=== PATIENT | female | born 2005 | race Caucasian/White ===

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

== ENCOUNTER → 2024-03-19 10:33 | Outpatient (BNVA) | payer BC, MEDICAID, SELFPAY | PROVIDERS: PCP Family Medicine; Referring Provider Family Medicine; Visit Provider Nurse Practitioner | DX: S62.356A Nondisplaced fracture of shaft of fifth metacarpal bone, right hand, initial encounter for closed fracture; W22.8XXA Striking against or struck by other objects, initial encounter | CPT/HCPCS: 73130 ==

== ENCOUNTER 2024-03-19 11:47 | Outpatient (CLI) | payer BC, MEDICAID, SELFPAY | END 2024-03-19 11:48 | disposition home or self-care (01) | LOC: SPT 11:48 | PROVIDERS: PCP Family Medicine; Visit Provider Nurse Practitioner | DX: Z46.89 Encounter for fitting and adjustment of other specified devices (principal); S62.606D Fracture of unspecified phalanx of right little finger, subsequent encounter for fracture with routine healing; X58.XXXD Exposure to other specified factors, subsequent encounter | CPT/HCPCS: L3984 ==

== ENCOUNTER → 2024-04-09 09:08 | Outpatient (BNVA) | payer BC, MEDICAID, SELFPAY | PROVIDERS: PCP Family Medicine; Visit Provider Nurse Practitioner | DX: S62.356D Nondisplaced fracture of shaft of fifth metacarpal bone, right hand, subsequent encounter for fracture with routine healing; X58.XXXD Exposure to other specified factors, subsequent encounter | CPT/HCPCS: 73130 ==

== ENCOUNTER → 2024-05-17 14:39 | Outpatient (BNVA) | payer BC, MEDICAID, SELFPAY | PROVIDERS: PCP Family Medicine; Visit Provider Nurse Practitioner | DX: S62.356D Nondisplaced fracture of shaft of fifth metacarpal bone, right hand, subsequent encounter for fracture with routine healing (principal); X58.XXXD Exposure to other specified factors, subsequent encounter | CPT/HCPCS: 73130 ==

== ENCOUNTER → 2024-06-07 15:12 | Outpatient (BNVA) | payer BC, MEDICAID, SELFPAY | PROVIDERS: PCP Family Medicine; Visit Provider Nurse Practitioner | DX: S62.356D Nondisplaced fracture of shaft of fifth metacarpal bone, right hand, subsequent encounter for fracture with routine healing (principal); X58.XXXD Exposure to other specified factors, subsequent encounter | CPT/HCPCS: 73130 ==

== ENCOUNTER 2024-08-18 16:00 | Emergency (ER) | payer BC, MEDICAID, SELFPAY ==
[2024-08-18 16:02] VITALS: BP 116/87; PULSE 98; RESP 18; TEMP 36.6; O2SAT 100; BMI 33.5
--- NOTE | 2024-08-18 16:02 | ED_ITS ---
HPI - General Adult 2 General: Chief complaint: Dizziness Stated complaint: right eye blurred - blurred Time Seen by Provider: 08/18/24 16:02 History of Present Illness: 18-year-old female presents emergency ro om with complaint of right eye blurriness. She is currently approximately 13 weeks . She has been having a few more headaches recently and they have been accompanied by odd symptoms such as sometimes numbness in the hands or feet transient vision changes feels like wavy lines or dark spots in her vision resolve spontaneously. No recent head trauma. Seems to get the symptoms as a harbinger of her headaches. She has not taken anything for them. Associated symptoms: Reports headache(s); Deny chest pain, dyspnea or rash Related Data Previous Rx's ?Medication ?Instructions ?Recorded epinephrine 0.3 mg/0.3 mL 0.3 mg (0.3 mL) IM Q10M PRN 04/24/20 injection, auto-injector (EpiPen) anaphylaxis #2 ea Ulna Gutter Fast FOrm, Right side #1 ea 03/19/24 nystatin-triamcinolone 100,000 1 applic topical TID MN N rash #30 03/25/24 unit/gram-0.1 % topical ointment grams right TKO wrist #1 ea 03/25/24 Allergies Allergy/AdvReac Type Severity Reaction Status Date / Time benzocaine (From Anbesol) Allergy ALGY-Hives Verified 06/07/24 15:19 phenol (From Anbesol) Allergy ALGY-Hives Verified 06/07/24 15:19 povidone-iodine (From Allergy ALGY-Hives Verified 06/07/24 15:19 Anbesol) Review of Systems 2 Const: Denies: fever(s) or chills Card: Denies: chest pain Resp: Denies: dyspnea GI: Denies: abdominal pain : Denies: dysuria, urinary frequency or urinary urgency Musc: Denies: neck pain or back pain Skin/Breast: Denies: rash Neuro: Reports: headache(s) PFSH ED 2 PFSH: Social History Smoking and tobacco/nicotine status: never used tobacco/nicotine Physical Exam 2 Const: COMMON NORMALS: no acute distress GENERAL APPEARANCE: cooperative ORIENTATION/CONSCIOUSNESS: Yes awake, Yes oriented to person, Yes oriented to place and Yes oriented to time HENMT: COMMON NORMALS: normocephalic, atraumatic and hearing grossly normal bilaterally HEAD & SCALP: normocephalic and atraumatic OTHER: Visual acuity with left and right eyes checked with Snellen chart at the bedside patient passes with no errors. Normal mena of vision. Eye: COMMON NORMALS: Equal, round and reactive pupils present, EOMs intact bilaterally, conjunctivae normal and no scleral icterus CONJUNCTIVA: Yes conjunctivae normal PUPIL: Yes Equal, round and reactive pupils present Resp: COMMON NORMALS: normal respiratory effort, No retractions, No use of accessory muscles and clear to auscultation bilaterally AUSCULTATION: clear to auscultation bilaterally Cardio: COMMON NORMALS: regular rate, regular rhythm and No murmurs present (Cardio) RATE: regular rate RHYTHM: regular rhythm GI: COMMON NORMALS: Soft to palpation and No hepatosplenomegaly present A USCULTATION: Yes normoactive bowel sounds PALPATION: Yes Soft to palpation, No Tenderness to palpation present (GI), No Guarding due to palpation present (GI) and Yes No hepatosplenomegaly present Extremity: COMMON NORMALS: normal to inspection, capillary refill normal, no clubbing, cyanosis or edema, no calf tenderness and no pedal edema Neuro: SENSORIUM/ORIENTATION: Yes oriented to person, Yes oriented to place and Yes oriented to time OTHER: No focal neurologic deficits. Mena vision are fully intact visual acuity normal when tested at the bedside is Snellen chart Skin: COMMON NORMALS: no rashes or lesions noted GENERAL SKIN EXAM: no rashes or lesions noted Course 2 Vital Signs: Vital signs: Vital Signs Temperature 97.9 F 08/18/24 16:02 Pulse Rate 79 08/18/24 18:07 Respiratory Rate 18 08/18/24 17:06 Blood Pressure 127/81 08/18/24 18:07 Pulse Oximetry 98 08/18/24 18:07 Oxygen Delivery Me thod Room Air 08/18/24 17:06 [facility] - General Adult Medical Decision Making No acute findings on exam suspect she had a migraine variant. She had a headache last night she feels like she has oncoming headache now. On visual acuity exam and peripheral vision she has full normal mena of vision and no deficits Patient did develop more of a headache as the visit went on we gave her medications for it is improved we will discharge the patient home. CT of the head is negative neurologic exam remains unremarkable fall discussed with her some of this may be migraine variant some of this I think may be a component of anxiety which she acknowledges. Discharge home follow-up with primary care [employer]. Lab Data 08/18/24 16:38 08/18/24 16:[address] 08/18/24 16:12 IMPRESSION: No acute intracranial abnormality. If symptoms persist, consider further evaluation with MRI, if there are no contraindications to obtaining a MRI scan. ASSESSMENT: ASPECTS ([place] Stroke Program Early CT Score) is 10. ADDENDUM: 08/18/24 2727 ADDENDUM: THIS REPORT CONTAINS FINDINGS THAT MAY BE CRITICAL TO PATIENT CARE. The findings were verbally communicated via telephone conference with Dr. Leonardo at 4:35 PM CDT on 08/18/2024. The findings were acknowledged and understood. Laboratory Results WBC 11.22 10^3/uL (4.5-13.0) 08/18/24 16:38 RBC 4.70 10^6/uL (3.85-5.65) 08/18/24 16:38 Hgb 13.20 g/dL (12.4-14.8) 08/18/24 16:38 Hct 41.6 % (36-47) 08/18/24 16:38 MCV 88.5 fl (85-98) 08/18/24 16:38 MCH 28.1 pg (27-33) 08/18/24 16:38 MCHC 31.7 g/dL (30-55) 08/18/24 16:38 RDW 13.6 % (12.1-15.1) 08/18/24 16:38 Plt Count 284 10^3/cmm (157-399) 08/18/24 16:38 MPV 9.5 fL (7.4-10.4) 08/18/24 16:38 Neut % (Auto) 74.8 % 08/18/24 16:38 Lymph % (Auto) 16.8 % 08/18/24 16:38 Weld % (Auto) 7.3 % 08/18/24 16:38 Eos % (Auto) 0.4 % 08/18/24 16:38 Baso % (Auto) 0.3 % 08/18/24 16:38 Neut # (Auto) 8.40 10^3/uL (1.8-8.0) H 08/18/24 16:38 Lymph # (Auto) 1.9 10^3/uL (1.5-6.5) 08/18/24 16:38 Weld # (Auto) 0.8 10^3/uL (0.2-0.9) 08/18/24 16:38 Eos # (Auto) 0.1 10^3/uL (0.0-0.8) 08/18/24 16:38 Baso # (Auto) 0.0 10^3/uL (0.0-0.1) 08/18/24 16:38 Nucleated RBC % (auto) 0 % 08/18/24 16:38 Nucleated RBCs # 0.0 /100WBC 08/18/24 16:38 Sodium 136 mmol/L (136-145) 08/18/24 16:38 Potassium 3.8 mmol/L (3.5-5.1) 08/18/24 16:38 Chloride 103 mmol/L (98-107) 08/18/24 16:38 Carbon Dioxide 19 mmol/L (22-29) L 08/18/24 16:38 Anion Gap 17.8 (5-19) 08/18/24 16:38 BUN 7 mg/dL (6-20) 08/18/24 16:38 Creatinine 0.5 mg/dL (0.5-0.9) 08/18/24 16:38 GFR Calculation 158.9 mL/min (90-130) H 08/18/24 16:38 Glucose 97 mg/dL (65-115) 08/18/24 16:38 Calculated Osmolality 280 mOsm/kg (285-295) L 08/18/24 16:38 Calcium 9.8 mg/dL (8.5-10.5) 08/18/24 16:38 Total Bilirubin 0.2 mg/dL (0.15-1.2) 08/18/24 16:38 AST 20 U/L (0-32) 08/18/24 16:38 ALT 36 U/L (0-33) H 08/18/24 16:38 Alkaline Phosphatase 90 U/L (35-105) 08/18/24 16:38 Total Protein 7.5 g/dL (6.6-8.7) 08/18/24 16:38 Albumin 4.0 g/dL (3.5-5.2) 08/18/24 16:38 Globulin 3.5 g/dL (1.3-4.6) 08/18/24 16:38 All radiology interpretation(s) finalized by discharge Discharge Plan Discharge Patient Disposition: Home Clinical Impression: state, incidental Headache Qualifiers: Headache type: other headache syndrome Qualified Code(s): G44.89 - Other headache syndrome Condition: Stable Prescriptions: No Action (DME) Ulna Gauravter Fast FOrm, Right side See Rx Instructions .Route .MEDSUPPLY Qty: 1 0RF Rx Instructions: As directed (DME) right TKO wrist See Rx Instructions .Route .MEDSUPPLY Qty: 1 0RF Rx Instructions: As directed. Order 99 days nystatin-triamcinolone 100,000-0.1 unit/gram-% ointment 1 applic topical TID PRN (Reason: rash) Qty: 30 1RF EpiPen 0.3 mg/0.3 mL auto-injector 0.3 mg IM Q10M PRN (Reason: anaphylaxis) Qty: 2 0RF Rx Instructions: for 2 doses Discharge Orders: Discharge ED (Routine); Ordered 08/18/24 Ordered By: Vikram Nobles Referrals: Stalin Parker MD [Primary Care Provider, [facility]] Discharge Diet: Usual diet Discharge Activity: Resume usual activity Patient Instructions: Opioid Safety, Pain Management Activity Restrictions/Additional Instructions: Thank you for choosing [facility] for your healthcare needs today. It is very important that you follow up as instructed or that you return to the Emergency Department should you have concerns or if your condition changes or worsens in any way. You were seen in the emergency room with complaints of headache as well as some weakness and vision changes. CT of your head is negative exam did not show any signs of stroke suspect that the symptoms are related to your headache. As we discussed they also can be experiencing conjunction with anxiety. 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 Print Language: Djiboutian Coding Level of Care Code ED [employer] for Radha Hernandez
--- NOTE | 2024-08-18 16:12 | CTR_ITS ---
PROCEDURE INFORMATION: Exam: CT Head Without Contrast Exam date and time: 08/18/2024 4:20 PM Age: 18 years old Clinical indication: Stroke-like symptoms; Visual disturbance; Additional info: Transient vision loss, 13 weeks shield abdomen TECHNIQUE: Imaging protocol: Computed tomography of the head without contrast. Radiation optimization: All CT scans at this facility use at least one of these dose optimization techniques: automated exposure control; mA and/or kV adjustment per patient size (includes targeted exams where dose is matched to clinical indication); or iterative reconstruction. Other technique: STROKE PROTOCOL was implemented. COMPARISON: No relevant prior studies available. RADIATION DOSE METRICS: Total DLP (mGy-cm): 995.8 FINDINGS: Brain: No acute intracranial hemorrhage. No confluent lobar infarct. No mass effect. Cerebral ventricles: The ventricles and sulci are normal in size and shape for the patient's stated age. Paranasal sinuses: No fluid levels. Mastoid air cells: Visualized mastoid air cells are well aerated. Bones: No acute calvarial fracture. Soft tissues: Visualized soft tissues are unremarkable. CT/CT head wo con* [id number] IMPRESSION: No acute intracranial abnormality. If symptoms persist, consider further evaluation with MRI, if there are no contraindications to obtaining a MRI scan. ASSESSMENT: ASPECTS ([place] Stroke Program Early CT Score) is 10.
[2024-08-18 16:16] VITALS: BP 116/87; PULSE 89; RESP 16; O2SAT 98
[2024-08-18 17:06] VITALS: BP 127/84; PULSE 94; RESP 18; O2SAT 98
[2024-08-18 17:09] LABS: Basophils % 0.3 %; Eosinophils # 0.1 10^3/uL (0.0-0.8); Eosinophils % 0.4 %; Hematocrit 41.6 % (36-47); Lymphocytes # 1.9 10^3/uL (1.5-6.5); Lymphocytes % 16.8 %; Mean Corpuscular HGB Conc 31.7 g/dL (30-55); Mean Corpuscular Hemoglobin 28.1 pg (27-33); Mean Corpuscular Volume 88.5 fl (85-98); Mean Platelet Volume 9.5 fL (7.4-10.4); Monocytes # 0.8 10^3/uL (0.2-0.9); Monocytes % 7.3 %; Neutrophils % 74.8 %; Nucleated Red Blood Cells % 0 %; Platelet Count 284 10^3/cmm (157-399); Red Cell Distribution Width 13.6 % (12.1-15.1); White Blood Count 11.22 10^3/uL (4.5-13.0)
[2024-08-18 17:27] LABS: Alanine Aminotransferase 36 U/L (0-33); Alkaline Phosphatase 90 U/L (35-105); Aspartate Amino Transferase 20 U/L (0-32); Blood Urea Nitrogen 7 mg/dL (6-20); Calcium 9.8 mg/dL (8.5-10.5); Carbon Dioxide 19 mmol/L (22-29); Chloride 103 mmol/L (98-107); Globulin 3.5 g/dL (1.3-4.6); Glomerular Filtration Rate 158.9 mL/min (90-130); Glucose 97 mg/dL (65-115); Osmolality Calculated 280 mOsm/kg (285-295); Sodium 136 mmol/L (136-145); Total Bilirubin 0.2 mg/dL (0.15-1.2); Total Protein 7.5 g/dL (6.6-8.7)
[2024-08-18 17:31] LABS: Anion Gap 17.8 (5-19); Potassium 3.8 mmol/L (3.5-5.1)
[2024-08-18 18:07] VITALS: BP 127/81; PULSE 79; O2SAT 98
== END 2024-08-18 18:07 | disposition home or self-care (01) ==
PROVIDERS: Emergency Provider Family Medicine; PCP Family Medicine
DX: G44.89 Other headache syndrome (principal); Z33.1 Pregnant state, incidental
CPT/HCPCS: 36415; 70450; 80053; 85025; 99284

== ENCOUNTER 2025-02-13 16:07 | Outpatient (CLI) | payer BC, MEDICAID, SELFPAY ==
[2025-02-13 16:10] VITALS: BMI 35.9
[2025-02-13 16:18] VITALS: BP 121/73; PULSE 96
[2025-02-13 16:33] VITALS: BP 121/76; PULSE 93
[2025-02-13 16:48] VITALS: BP 127/69; PULSE 88
== END 2025-02-13 16:55 | disposition home or self-care (01) ==
LOC: OPOB 16:08 → OBGYN 16:08
PROVIDERS: PCP Family Medicine; Visit Provider Family Medicine
DX: O36.8190 Decreased fetal movements, unspecified trimester, not applicable or unspecified (principal); Z3A.00 Weeks of gestation of pregnancy not specified
CPT/HCPCS: 59025; 99211

== ENCOUNTER 2025-03-03 20:11 | Outpatient (CLI) | payer BC, MEDICAID, SELFPAY ==
[2025-03-03 20:57] VITALS: BP 127/75; PULSE 89
[2025-03-03 21:00] VITALS: BMI 38.8
[2025-03-03 21:02] VITALS: RESP 16
[2025-03-03 21:56] VITALS: BP 119/74; PULSE 93
[2025-03-03 22:15] VITALS: BP 125/77; PULSE 85
[2025-03-03 22:20] VITALS: BP 125/77; PULSE 85; RESP 16; TEMP 36.3; O2SAT 98
== END 2025-03-03 22:20 | disposition home or self-care (01) ==
LOC: OPOB 20:12 → OBGYN 20:18
PROVIDERS: PCP Family Medicine; Visit Provider Family Medicine
DX: O26.899 Other specified pregnancy related conditions, unspecified trimester (principal); Z3A.00 Weeks of gestation of pregnancy not specified; R10.9 Unspecified abdominal pain
CPT/HCPCS: 59025; 99211

== ENCOUNTER 2025-03-05 07:14 | Inpatient (IN) | payer BC, MEDICAID, SELFPAY ==
[2025-03-04 23:17] VITALS: BP 133/83; PULSE 88
[2025-03-04 23:25] LABS: Nitrazine Paper, PH Inconclusive
[2025-03-04 23:34] VITALS: BP 132/77; PULSE 95
[2025-03-05] VITALS (107 sets, daily range): BP systolic 92–159; BP diastolic 53–95; PULSE 74–133; RESP 17–18; TEMP 35.8–37; O2SAT 87–100
[2025-03-05 01:58] LABS: Hematocrit 31.7 % (36-47); Hemoglobin 9.90 g/dL (12.4-14.8); Mean Corpuscular HGB Conc 31.2 g/dL (30-55); Mean Corpuscular Hemoglobin 25.9 pg (27-33); Mean Corpuscular Volume 83.0 fl (85-98); Nucleated Red Blood Cells % 0.2 %; Platelet Count 273 10^3/cmm (157-399); Red Blood Count 3.82 10^6/uL (3.85-5.65); White Blood Count 14.41 10^3/uL (4.5-13.0)
[2025-03-05] MEDS: penicillin g potassium 5,000,000 UNIT in sodium chloride 0.9% (plus) 100 ML 100 UNIT IV (03:02)
[2025-03-05] MEDS: PENICILLIN G POTASSIUM 2,500,000 UNIT/50 ML BAG 50 UNIT IV ×4 (06:44→19:20)
[2025-03-05] MEDS: ROPivacaine premix 200 MG/100 ML PREMIX 10 MG EPIDURAL ×3 (10:04→20:25)
--- NOTE | 2025-03-05 10:06 | P.ANESASSM_ITS ---
Pre-Anesthetic Assessment Height/Weight: Height 1.7 m Weight 113.852 kg Temp Pulse Resp BP Pulse Ox O2 Del Method 96.4 F L 101 H 18 114/64 100 Room Air 03/05/25 09:03 03/05/25 10:03 03/05/25 00:15 03/05/25 10:03 03/05/25 10:03 03/05/25 00:22 Preop Diagnosis: gravid uterus epidural Familial anesthetic complications: none Was Beta Evan taken within 24 hours: N/A Was Clonidine taken within 24 hours: N/A Social No alcohol and No tobacco Exam alert, oriented x 3, clear to auscultation bilaterally and regular rate & rhythm Airway Mallampati: Class II Dentition: full History/ROS No significant history except as noted Pulmonary None reported CV/HEM None reported None reported Hepatic None reported GI None reported Metabolic None reported Musc/skel None reported Neuropsych Anxiety Anesthetic Plan ASA status: 2 Anesthesia: Regional (specify below) Risk of > 500 ml blood loss (7ml/kg in children): No Medications/Allergies Home Medications ?Medication ?Instructions ?Recorded ?Confirmed ?Last Taken ?Type epinephrine 0.3 mg/0.3 mL 0.3 mg (0.3 mL) IM Q10M PRN 04/24/20 06/07/24 Unknown Rx injection, auto-injector (EpiPen) anaphylaxis #2 ea Ulchelsie Gutter Fast FOrm, Right side #1 ea 03/19/2406/07 Unknown Rx nystatin-triamcinolone 100,000 1 applic topical TID IL N rash #30 03/25/24 06/07/24 Unknown Rx unit/gram-0.1 % topical ointment grams right TKO wrist #1 ea 03/25/24 06/07/24 Unkn own Rx Allergies Allergy/AdvReac Type Severity Reaction Status Date / Time benzocaine (From Anbesol) Allergy ALGY-Hives Verified 06/07/24 15:19 phenol (From Anbesol) Allergy ALGY-Hives Verified 06/07/24 15:19 povidone-iodine (From Allergy ALGY-Hives Verified 06/07/24 15:19 Anbesol) Current Medications Generic Name Dose Route Start Last Admin Trade Name Freq PRN Reason Stop Dose Admin Dextrose/Lactated Ringer's 1,000 mls @ 125 mls/hr 03/05/25 00:15 03/05/25 09:23 Dextrose 5%-Lactated Ringers IV Infused .Q8H TASHA Infusion Penicillin G Potassium 2,500,000 unit in 50 mls @ 50 mls/hr 03/05/25 04:15 03/05/25 08:00 IV Infused Q4H TASHA Infusion Protocol Lactated Ringer's 1,000 mls @ 999 mls/hr 03/05/25 07:55 03/05/25 10:04 Lactated Ringers IV 999 mls/hr .Q1H1M PRN Administration See label comments Ropivacaine 200 mg in 100 mls @ 10 mls/hr 03/05/25 08:00 03/05/25 10:04 Naropin Premix EPIDURAL 10 mls/hr .Q10H TASHA Administration PFSH Anesthesia Social History Smoking and tobacco/nicotine status: never used tobacco/nicotine Female Reproductive History : 1 Data Anesthesia 03/05/25 00:55 Short CBC 03/05/25 Range/Units 00:55 WBC 14.41 H (4.5-13.0) 10^3/uL Hgb 9.90 L (12.4-14.8) g/dL Hct 31.7 L (36-47) % MCV 83.0 L (85-98) fl Plt Count 273 (157-399) 10^3/cmm Neut % (Auto) 72.3 % Neut # (Auto) 10.41 H (1.8-8.0) 10^3/uL Blood Bank 03/05/25 00:55 Blood Type A Positive Rho(D) Type Rh positive Antibody Screen Negative Anesthesia Procedures Epidural Time Out Performed: Yes Consents Signed: Procedure Consent Consent: requested by attending/covering physician, from patient, risks and benefits reviewed and patient agrees to proceed Lumbar Level: L4-L5 Epidural position: sitting Epidural procedure: sterile prep of area, 1% lidocaine to numb the area, 18 g needle, negative for paresthesia passed, neg for paresthesia, test dose given, 1.5% xylocaine 1:200k epi, 0.2% Ropivacaine bolus ml (5), placed PCEA, no systemic response, sterile dressing applied, L.U.D. no apparent complications and 0.2% Ropiavacaine @ mls/hr (13) Additional Comments: ROLY at 9cm
[2025-03-05] MEDS: oxytocin 30 UNIT/500 ML BAG IV (11:00)
--- NOTE | 2025-03-05 11:01 | PM.OPHPUD ---
Labor & Delivery H&P Update Date of Procedure: March 05, 2025 Date H&P Performed: 03/01/25 Changes to previous documentation: Spontaneous rupture of membranes Admission Diagnosis: 19-year-old 1 at 39 weeks and 5 days presenting with spontaneous rupture of membranes Preop diagnosis: gravid uterus Planned procedure: Spontaneous vaginal delivery Other information: The patient is a 19-year-old female who presented to the hospital shortly after having ruptured membranes. That occurred last night around 10 PM. The patient's has been relatively unremarkable other than having anxiety issues, as well as being GBS positive. She has had consistent care. Her blood type was a positive. Her antibody screen was negative. She passed her 3-hour glucose screen. She is rubella immune. Her drug screen was negative. The remainder of her infectious disease profile was within normal limits. Related Problem List Diagnoses 1. 39 weeks gestation of : I anticipate a routine labor and vaginal delivery. Due to rupture membranes, we may augment labor as needed. 2. Spontaneous rupture of membranes: 3. Anxiety during : A&P Assessment and plan 1. 39 weeks gestation of : Status: Acute 2. Spontaneous rupture of membranes: Status: Acute 3. Anxiety during : Status: Acute PDMP PDMP Reviewed: Not Reviewed
--- NOTE | 2025-03-05 22:03 | P.PCNOB_ITS ---
Delivery Note: Date of delivery: March 05, 2025 Pre-delivery diagnoses: 19-year-old 1 at 39 weeks and 6 days presenting with spontaneous rupture membranes Post-delivery diagnoses: Status post spontaneous vaginal delivery Procedure: Spontaneous vaginal delivery Delivering Physician: Triston Rodrigez Estimated blood loss (mL): 75 Pre-Delivery Course: The patient presented to the hospital with spontaneous rupture membranes. There were noted to be grossly ruptured. An epidural was placed. She was given Cytotec x 1. She was also had a labor augmented with Pitocin. Later the baby began having recurrent lates and the Pitocin was stopped. She then progressed to complete without difficulty. She was GBS positive and was on GBS protocol for over 24 hours. Rupture of membranes occurred approximately 28 hours prior to delivery. The mother did not have any fever. Delivery: DELIVERY: The patient progressed to complete without difficulty. She delivered a male with a weight of 3160 g with Apgars of 9, 9. The baby was delivered from the [place] position and placed on the mother's abdomen. The cord was then clamped and cut 1 minute after delivery. There was no nuchal cord. Terminal meconium was noted. The placenta and 3 vessel cord were delivered intact shortly thereafter. The perineum and vaginal vault were carefully examined. A first- degree posterior midline laceration was noted. It was repaired with 3-0 Vicryl in usual fashion.. Both the mother and the baby were in stable condition. Post-Delivery Status: Good A&P Assessment and plan 1. 39 weeks gestation of : I anticipate routine care. 2. Spontaneous vaginal delivery: PDMP PDMP Reviewed: Not Reviewed Coding Level of Care Code Acute Code for Chg Fwd Diagnoses 39 weeks gestation of Z3A.39 Spontaneous vaginal delivery O80
[2025-03-06] VITALS (10 sets, daily range): BP systolic 121–139; BP diastolic 58–79; PULSE 69–109; RESP 16–18; TEMP 36.6–36.9; O2SAT 92–100
[2025-03-06] MEDS: PRENATAL VIT NO.130/IRON/FOLIC 1 EACH TABLET PO (06:51)
--- NOTE | 2025-03-06 11:40 | PM.OBGYDC ---
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 39 weeks gestation of : 2. Spontaneous vaginal delivery: Reason for Visit Reason for Visit: Possible rupture of membranes,contractions Hospital Course Hospital Course The patient presented to the hospital with spontaneous rupture membranes. Her labor was augmented with Cytotec and Pitocin. An epidural was placed. She progressed to complete and had an unremarkable delivery of a healthy appearing male . She had a first-degree posterior midline tear. It was repaired in the usual fashion. Her bleeding was within normal limits. Her bleeding and pain control were within normal limits as well. Information Peripartum Data: Delivery Method: Vaginal Physical Exam Narrative: The patient is alert. She appears comfortable. Her heart has a regular rate and rhythm with no murmurs appreciated. Lungs are clear to auscultation bilaterally. Her fundus is firm and below the umbilicus. Urinary Catheter Management: Cruz Latex: Cath Placed During This Visit: yes Reason for Continuing Indwelling Catheter: Acute Urinary Retention or Obstruction Urinary Catheter Date of Insertion: 03/05/25 Urinary Catheter Time of Insertion: 10:45 Discharge Data Studies Completed and Pending Pending at discharge Category Date Time Status Hemagram Timed Lab 03/06/25 10:06 Uncollected Laboratory Results WBC 14.41 10^3/uL (4.5-13.0) H 03/05/25 00:55 RBC 3.82 10^6/uL (3.85-5.65) L 03/05/25 00:55 Hgb 9.90 g/dL (12.4-14.8) L 03/05/25 00:55 Hct 31.7 % (36-47) L 03/05/25 00:55 MCV 83.0 fl (85-98) L 03/05/25 00:55 MCH 25.9 pg (27-33) L 03/05/25 00:55 MCHC 31.2 g/dL (30-55) 03/05/25 00:55 RDW 15.3 % (12.1-15.1) H 03/05/25 00:55 Plt Count 273 10^3/cmm (157-399) 03/05/25 00:55 MPV 9.6 fL (7.4-10.4) 03/05/25 00:55 Neut % (Auto) 72.3 % 03/05/25 00:55 Lymph % (Auto) 16.5 % 03/05/25 00:55 [place] % (Auto) 8.3 % 03/05/25 00:55 Eos % (Auto) 0.9 % 03/05/25 00:55 Baso % (Auto) 0.3 % 03/05/25 00:55 Neut # (Auto) 10.41 10^3/uL (1.8-8.0) H 03/05/25 00:55 Lymph # (Auto) 2.4 10^3/uL (1.5-6.5) 03/05/25 00:55 [place] # (Auto) 1.2 10^3/uL (0.2-0.9) H 03/05/25 00:55 Eos # (Auto) 0.1 10^3/uL (0.0-0.8) 03/05/25 00:55 Baso # (Auto) 0.0 10^3/uL (0.0-0.1) 03/05/25 00:55 Nucleated RBC % (auto) 0.2 % 03/05/25 00:55 Nucleated RBCs # 0.0 /100WBC 03/05/25 00:55 Insulin-like GF I Positive 03/04/25 23:14 Fluid pH (paper) Inconclusive 03/04/25 23:14 Blood Type A Positive 03/05/25 00:55 Rho(D) Type Rh positive 03/05/25 00:55 Antibody Screen Negative 03/05/25 00:55 Vitals Last Vital Signs Temp 97.9 F 03/06/25 01:15 Pulse 85 03/06/25 02:45 Resp 16 03/06/25 02:45 BP 125/58 03/06/25 02:45 Pulse Ox 92 03/06/25 02:45 O2 Del Method Room Air 03/06/25 02:45 Results Labs OB ([facility]): Blood Type A Positive 03/05/25 Antibody Screen Negative 03/05/25 Hct, (36-47) 31.7 % L 03/05/25 Hgb, (12.4-14.8) 9.90 g/dL L 03/05/25 Rho(D) Type Rh positive 03/05/25 Plt Count, (157-399) 273 10^3/cmm 03/05/25 HCG, Qual, (Negative) Negative 08/21/23 Discharge Plan Discharge Patient Disposition: Home Condition: Stable Prescriptions: New Vitamin 27 mg iron- 800 mcg Tablet 1 tab PO DAILY Qty: 90 0RF Continued (DME) Ulna Gutter Fast FOrm, Right side See Rx Instructions .Route .MEDSUPPLY Qty: 1 0RF Rx Instructions: As directed (DME) right TKO wrist See Rx Instructions .Route .MEDSUPPLY Qty: 1 0RF Rx Instructions: As directed. Order 99 days EpiPen 0.3 mg/0.3 mL auto-injector 0.3 mg IM Q10M PRN (Reason: anaphylaxis) Qty: 2 0RF Rx Instructions: for 2 doses Discontinued nystatin-triamcinolone 100,000-0.1 unit/gram-% ointment 1 applic topical TID PRN (Reason: rash) Qty: 30 1RF Discharge Order = DC NOW: Discharge Order (Routine); Ordered 03/06/25 Ordered By: Triston Rodrigez Referrals: Triston Rodrigez MD [Primary Care Provider, [facility]] - 6 Weeks Discharge Diet: Usual diet Discharge Activity: Limit activity as instructed Patient Instructions: Depression (DC), Opioid Safety (DC), Preeclampsia and Eclampsia After Delivery (GEN), Hemorrhage (DC), OB Discharge Report, OB Food/Drug Interaction Guide, OB Care at Home, Opioid Safety, OB Vaginal Deliveries, Patient Portal & [place] Instructions, Abnormal Bleeding Discharge Attestations H[employer] EXECUTIVE Time Spent in Discharge Care*: less than 30 min Coding Level of Care Code Acute Code for Chg Fwd Diagnoses 39 weeks gestation of Z3A.39 Spontaneous vaginal delivery O80
[2025-03-06 12:59] LABS: Hematocrit 29.6 % (36-47); Hemoglobin 9.30 g/dL (12.4-14.8); Mean Corpuscular HGB Conc 31.4 g/dL (30-55); Mean Corpuscular Hemoglobin 26.1 pg (27-33); Mean Corpuscular Volume 82.9 fl (85-98); Platelet Count 267 10^3/cmm (157-399); Red Blood Count 3.57 10^6/uL (3.85-5.65); White Blood Count 14.06 10^3/uL (4.5-13.0)
--- NOTE | 2025-03-07 14:01 | ANE.PACU2 ---
Inpatient post-anesthesia follow up: Airway intact: Yes Vital signs: Temperature 98.1 F Pulse Rate 83 Respiratory Rate 16 Blood Pressure 126/68 Pulse Oximetry 98 Oxygen Delivery Me thod Room Air Oxygen Flow Rate Fraction of Inspir ed Oxygen Hydration adequate: Yes Nausea and vomiting: No Pain level: 1 Mental status: Baseline Epidural Start/End: Epidural Start Date: 03/05/25 Epidural Start Time: 09:42 Epidural End Date: 03/05/25 Epidural End Time: 22:03
== END 2025-03-06 22:35 | disposition home or self-care (01) | DRG 560 ==
LOC: OPOB 07:14 → OBGYN 07:14
PROVIDERS: Admitting Provider Family Medicine; PCP Family Medicine; Visit Provider Family Medicine
DX: O99.824 Streptococcus B carrier state complicating childbirth (principal); O99.344 Other mental disorders complicating childbirth; O77.0 Labor and delivery complicated by meconium in amniotic fluid; O70.0 First degree perineal laceration during delivery; Z3A.39 39 weeks gestation of pregnancy; Z37.0 Single live birth; F41.9 Anxiety disorder, unspecified
CPT/HCPCS: 36415; 51702; 59025; 59409; 83986; 84112; 85025; 85027; 86850; 86900; 99211; J2540; J2590; J2795; J7120; J7121; J9999